=== PATIENT | female | born 2000 | race Caucasian/White ===

== ENCOUNTER → 2022-04-17 14:50 | Outpatient (BNVA) | payer OTHER, SELFPAY | PROVIDERS: PCP Nurse Practitioner Family; Visit Provider Nurse Practitioner Family | DX: N39.0 Urinary tract infection, site not specified (principal) | CPT/HCPCS: 81000 ==

== ENCOUNTER → 2022-12-23 12:41 | Outpatient (BNVA) | payer OTHER, SELFPAY | PROVIDERS: PCP Nurse Practitioner Family; Visit Provider Psychiatry & Neurology Psychiatry | DX: Z79.899 Other long term (current) drug therapy (principal); F90.9 Attention-deficit hyperactivity disorder, unspecified type; F41.9 Anxiety disorder, unspecified; F39 Unspecified mood [affective] disorder | CPT/HCPCS: 80053; 80061; 83036; 84443; 85025 ==

== ENCOUNTER → 2023-04-17 13:20 | Outpatient (BNVA) | payer OTHER, SELFPAY | PROVIDERS: PCP Nurse Practitioner Family; Visit Provider Nurse Practitioner Family | DX: Z30.9 Encounter for contraceptive management, unspecified (principal) | CPT/HCPCS: 81025 ==

== ENCOUNTER → 2023-07-09 11:10 | Outpatient (BNVA) | payer OTHER, SELFPAY | PROVIDERS: PCP Nurse Practitioner Family; Visit Provider Nurse Practitioner Family | DX: R30.0 Dysuria (principal); R31.9 Hematuria, unspecified | CPT/HCPCS: 81000; 87086 ==

== ENCOUNTER → 2023-08-10 13:05 | Outpatient (BNVA) | payer OTHER, SELFPAY | PROVIDERS: PCP Nurse Practitioner Family; Visit Provider Nurse Practitioner Family | DX: R30.0 Dysuria (principal); N89.8 Other specified noninflammatory disorders of vagina | CPT/HCPCS: 81000; 87070; 87077; 87205; 87491; 87591 ==

== ENCOUNTER → 2023-11-27 10:43 | Outpatient (BNVA) | payer OTHER, SELFPAY | PROVIDERS: PCP Nurse Practitioner Family; Visit Provider Nurse Practitioner Family | DX: N89.8 Other specified noninflammatory disorders of vagina (principal) | CPT/HCPCS: 81000; 87070; 87086; 87106; 87205 ==

== ENCOUNTER → 2023-12-22 15:27 | Outpatient (BNVA) | payer OTHER, SELFPAY | PROVIDERS: PCP Nurse Practitioner Family; Visit Provider Nurse Practitioner Family | DX: N93.0 Postcoital and contact bleeding | CPT/HCPCS: 87070; 87205; 88175 ==

== ENCOUNTER 2024-01-04 15:51 | Outpatient (CLI) | payer OTHER, SELFPAY ==
--- NOTE | 2024-01-04 16:00 | US_ITS ---
WS: [id number] US pelvic complete* 36193 HISTORY: R10.2 - Pelvic and perineal pain COMPARISON: None available. Uterus: 6.5 cm x 4.3 cm x 3.2 cm. Normal size anteverted uterus. No fibroid or mass. Endometrium: 1.0 cm. Normal. Right ovary: 2.2 cm x 1.1 cm x 2.0 cm. Normal size and vascularity, no cystic or solid masses. Left ovary: Not visualized. No adnexal mass. No free fluid in the cul-de-sac. IMPRESSION: 1. Normal sized uterus and endometrium. 2. LEFT ovary not visualized. 3. Patient has declined transvaginal imaging.
== END 2024-01-04 15:52 | disposition home or self-care (01) ==
LOC: RAD 15:51
PROVIDERS: PCP Nurse Practitioner Family; Visit Provider Nurse Practitioner Family
DX: R10.2 Pelvic and perineal pain (principal)
CPT/HCPCS: 76830; 76856; 76857

== ENCOUNTER → 2024-01-25 08:10 | Outpatient (BNVA) | payer OTHER, SELFPAY | PROVIDERS: PCP Nurse Practitioner Family; Visit Provider Obstetrics & Gynecology | DX: R87.619 Unspecified abnormal cytological findings in specimens from cervix uteri (principal); R87.612 Low grade squamous intraepithelial lesion on cytologic smear of cervix (LGSIL) | CPT/HCPCS: 81025; 88305 ==

== ENCOUNTER → 2024-07-06 11:33 | Outpatient (BNVA) | payer OTHER, SELFPAY | PROVIDERS: PCP Nurse Practitioner Family; Visit Provider Nurse Practitioner Family | DX: B37.31 Acute candidiasis of vulva and vagina (principal) | CPT/HCPCS: 81000; 87070; 87086; 87205 ==

== ENCOUNTER → 2024-08-23 09:15 | Outpatient (BNVA) | payer OTHER, SELFPAY | PROVIDERS: PCP Nurse Practitioner Family; Visit Provider Nurse Practitioner Family | DX: J32.9 Chronic sinusitis, unspecified (principal) | CPT/HCPCS: 87400; 87426; 87880 ==

== ENCOUNTER → 2024-10-31 08:45 | Outpatient (BNVA) | payer OTHER, SELFPAY | PROVIDERS: PCP Nurse Practitioner Family; Visit Provider Nurse Practitioner Family | DX: B37.9 Candidiasis, unspecified (principal); Z13.220 Encounter for screening for lipoid disorders; N76.0 Acute vaginitis; N39.0 Urinary tract infection, site not specified | CPT/HCPCS: 80053; 80061; 81000; 87070; 87086; 87205 ==

== ENCOUNTER → 2025-01-23 14:36 | Outpatient (BNVA) | payer OTHER, SELFPAY | PROVIDERS: PCP Nurse Practitioner Family; Visit Provider Nurse Practitioner Family | DX: Z12.4 Encounter for screening for malignant neoplasm of cervix (principal) | CPT/HCPCS: 87070; 87205; 88175 ==